=== PATIENT | male | born 1955 | race Caucasian/White ===

== ENCOUNTER 2023-11-29 07:57 | Emergency (ER) | payer OTHER, MEDICARE, SELFPAY ==
[2023-11-29] VITALS (8 sets, daily range): BP systolic 111–164; BP diastolic 76–134; BMI 31.3
--- NOTE | 2023-11-29 08:34 | ED.GENMED ---
History of Present Illness
General
Chief Complaint: Heart Rate Problem
Time Seen by Provider: 11/29/23 08:25
History of Present Illness
History of Present Illness:
68 yo male w/ hx of HTN and HLD presents to the Emergency Department for evaluation of heart palpitations x 3 days. He notes he had severe diarrhea, non bloody, on day of onset of cardiac symptoms. No prior hx of cardiac dysrhythmia. No fevers,
chills or sweats. Denies CP, SOB, abd pain, or N/V.
Review of Systems
Review of Systems
Allergies reviewed?: Yes
All Other Systems: ROS reviewed and negative except as documented in HPI and ROS
Phy Exam
Physical Exam
Physical Exam:
GEN: Well appearing, NAD, WDWN
Eyes: PERRLA, EOMs intact, no scleral icterus
HENT: NCAT, oral mucosa moist
Lungs: CTAB, no wheezes, rales, rhonchi, normal chest wall excursion
Cardiac: Tachycardic and irregular, no murmur
Abdomen: S, NT, ND, NABS, no masses or hepatosplenomegaly
Neuro: AO x 3
MSK: No gross deformity or ecchymosis. No edema. No digital clubbing
Skin: No rashes, petechiae. Normal color, no pallor or jaundice.
Psych: Calm, cooperative, proper hygiene
Course
Orders/Labs/Results
Orders:
Orders
11/29/23 08:04
Electrocardiogram (*1) Urgent
Reason for Study: Palpitations
EKG- Treatment ONCE
11/29/23 08:32
0.9% Sodium Chloride 1000 ml [Nss] 1,000 ml IV BOLUS
Magnesium Sulfate 2 Gram/50 ml [Magnesium Sulfate] 2 gram in 50 ml IV NOW
11/29/23 08:37
Complete Blood Count/With Diff Urgent
Comprehensive Metabolic Panel Urgent
Magnesium Urgent
TSH Reflex To Free T4 Urgent
11/29/23 09:16
Metoprolol [Lopressor] 5 mg IV NOW STA
11/29/23 09:21
Labetalol [Trandate] 400 mg PO NOW STA
11/29/23 09:49
Metoprolol [Lopressor] 5 mg IV NOW STA
11/29/23 11:28
Apixaban [Eliquis] 5 mg PO NOW STA
Abnormal Lab Results
11/29/23
08:37
WBC 11.3 H 10^3/uL
(4.8-10.8)
MCH 32.0 H pg
(27.0-31.0)
MPV 10.5 H fL
(7.4-10.4)
Abs Immat Gran (auto) 0.1 H 10^3/uL
(0-0.05)
Absolute Neuts (auto) 7.6 H 10^3/uL
(1.4-6.5)
Absolute Monos (auto) 1.1 H 10^3/uL
(0.1-0.6)
Monocytes % 9.6 H %
(1.7-9.3)
Chloride 108 H mmol/L
(98-107)
Glucose 130 H mg/dl
(70-99)
AST 78 H U/L
(17-59)
ALT 91 H U/L
(0-50)
Total Protein 6.1 L g/dl
(6.3-8.2)
11/29/23 08:37
11/29/23 08:37
Vital Signs
Initial and Last Documented VS:
Initial Vital Signs
Temp Pulse Resp BP Pulse Ox
97.6 F 71 18 164/114 96
11/29/23 08:01 11/29/23 08:01 11/29/23 08:01 11/29/23 08:01 11/29/23 08:01
Last Documented Vital Signs
Temp Pulse Resp BP Pulse Ox
97.6 F 92 22 111/76 94
11/29/23 08:01 11/29/23 11:15 11/29/23 11:15 11/29/23 11:00 11/29/23 11:15
MDM/Problems Addressed
MDM/Problems Addressed:
Patient arrives with a new onset rapid atrial fibrillation. This may have been provoked by diarrhea and transient electrolyte loss however he notes he has not taken his labetalol for several days. He remained clinically stable in the emergency
department, heart rate did not improve much after IV fluids and magnesium, subsequently started him on IV beta-blockers with good improvement in heart rates. He remained in the low 90s to low 100s and was given his oral labetalol. Although
labetalol is not ideal in terms of a heart rate only medication, he remained stable and states that he has not tolerated metoprolol from a blood pressure standpoint in the past thus we will not change his medication therapy at this time. He will be
started on anticoagulants and we will have him follow-up as an outpatient with his primary care physician as well as cardiology
Comment
Comment:
Initial EKG independently interpreted by me shows a rapid atrial fibrillation at a rate of 144 w/ diffuse ST depressions, likely rate dependent subendocardial ischemia, QTc 489
*Critical Care Note
Total Time (30-74mins, 75-104mins- exclusive of procedures): Not Applicable
ED Attending Note
-
Portions of this chart may have been created with voice recognition software.� Occasional wrong word or��sound alike� substitutions may have occurred due to the inherent limitations of voice recognition software.
Discharge Plan
Departure
Patient Disposition: Home (Routine Discharge)
Date of Disposition: 11/29/23
Time of Disposition: 11:26
Patient with high blood pressure during this ER visit?: No
Discharge Problem:
Atrial fibrillation, new onset
Instructions: Atrial Fibrillation (DC), Apixaban
Prescriptions:
New
Eliquis 5 mg tablet
5 mg PO BID Qty: 60 0RF
No Action
clonidine HCl 0.1 mg Tablet
0.1 mg PO BID
labetalol 200 mg Tablet
400 mg PO BID
rosuvastatin 10 mg Tablet
10 mg PO DAILY
Referrals:
David Jones DO [Family Provider] -
Octaviano Feliciano MD [Active] -
Activity Restrictions/Additional Instructions:
If you notice your heart rates climbing again at home, you may need additional rate control medication, such as diltiazem. If you have not seen your quality checker, you can discuss this with your primary care physician
Interventions
Interventions:
*Risk Screen - Suicide Last Done: 11/29/23 08:42
*General Assessment Last Done: 11/29/23 08:01
*Neglect/Abuse Screening Last Done: 11/29/23 08:42
ED- Fall Risk Assessment Last Done: 11/29/23 08:42
*ED COVID-19 Vaccine History Last Done: 11/29/23 08:01
*Nursing Disposition Last Done: 11/29/23 11:42
ED- Cardiac Assessment Last Done: 11/29/23 08:43
ED- Pulmonary Assessment Last Done: 11/29/23 08:43
Discharge Date and Time
Discharge Date/Time: 11/29/23 11:43
Print Language: [id number]
[2023-11-29 08:45] LABS: % Basophils 0.4 % (0-2); % Eosinophils 0.3 % (0-6); % Immature Granulocytes 0.4 % (0-0.5); % Monocytes 9.6 % (1.7-9.3); % Neutrophils 67.3 % (42.2-75.2); Absolute Immature Granulocytes 0.1 10^3/uL (0-0.05); Absolute Lymphocytes 2.5 10^3/uL (1.2-3.4); Absolute Monocytes 1.1 10^3/uL (0.1-0.6); Absolute Neutrophils 7.6 10^3/uL (1.4-6.5); Hematocrit 42.7 % (39.0-52.0); Hemoglobin 15.2 g/dL (13.0-18.0); Mean Corp Hgb Conc. 35.6 g/dL (33.0-37.0); Mean Corpuscular Volume 89.9 fL (80.0-94.0); Mean Platelet Volume 10.5 fL (7.4-10.4); Nucleated Red Blood Cells % 0 % (-); Platelet Count 167 10^3/uL (130-400); Red Blood Cell Count 4.75 10^6/uL (4.70-6.10); Red Cell Dist. Width 13.6 % (11.5-14.5); White Blood Cell Count 11.3 10^3/uL (4.8-10.8)
[2023-11-29] MEDS: NSS 1000 IV (08:46)
[2023-11-29] MEDS: MAGNESIUM SULFATE 50 IV (08:46)
[2023-11-29 09:03] LABS: ALT (SGPT) 91 U/L (0-50); AST (SGOT) 78 U/L (17-59); Albumin 3.7 g/dl (3.5-5.0); Alkaline Phosphatase 97 U/L (38-126); Blood Urea Nitrogen 15 mg/dl (9-20); Carbon Dioxide 25 mmol/L (22-30); Chloride 108 mmol/L (98-107); Estimated Creatinine Clearance 122 ml/min; Glucose 130 mg/dl (70-99); Magnesium 1.7 mg/dl (1.6-2.3); Potassium 3.7 mmol/L (3.5-5.1); Sodium 142 mmol/L (135-145); Total Bilirubin 0.9 mg/dl (0.2-1.3); Total Protein 6.1 g/dl (6.3-8.2); eGFR > 60.00
[2023-11-29] MEDS: LOPRESSOR 5 MG IV ×2 (09:20→09:52)
[2023-11-29] MEDS: TRANDATE 400 MG PO (09:50)
[2023-11-29] MEDS: ELIQUIS 5 MG PO (11:34)
== END 2023-11-29 11:43 | disposition home or self-care (01) ==
LOC: EMR 07:57
PROVIDERS: Physician Assistant; EMERGENCY PHYSICIAN Emergency Medicine; FAMILY PHYSICIAN Family Medicine
DX: I48.91 Unspecified atrial fibrillation (principal); R19.7 Diarrhea, unspecified; I10 Essential (primary) hypertension; E78.5 Hyperlipidemia, unspecified
CPT/HCPCS: 99284; 96365; 96375; 96376; 80053; 83735; 84443; 85025; 93005